=== PATIENT | female | born 1970 | race Caucasian/White ===

== ENCOUNTER 2017-10-14 11:23 | Observation (INO) | payer MEDICAID, SELFPAY ==
[2017-10-14] VITALS (9 sets, daily range): BP systolic 123–172; BP diastolic 46–104; PULSE 60–70; RESP 12–22; TEMP 36.3–37; O2SAT 98–100; BMI 33.8
--- NOTE | 2017-10-14 11:52 | HMH.EDCP ---
ED Disposition Clinical Impression: Chest pain Qualifiers: Chest pain type: other chest pain Qualified Code(s): R07.89 - Other chest pain; R07.8 - Other chest pain Disposition: Admitted As Inpatient Condition on Discharge: Good - Critical Care Critical Care Time: No Attestation: On , the high probability of a clinically significant, sudden or life threatening deterioration of the following system(s) required my full and direct attention, intervention and personal management. The time I documented below is in addition to time spent performing reported procedures but includes the following listed in this critical care notation. Medical Decision Making - Medical Records Medical records reviewed: Yes: I reviewed the patient's medical records. Vital Signs: 10/14/17 11:26 Temperature 98.1 F Temperature Source Oral Pulse Rate [Left Brachial] 61 Respiratory Rate 12 Blood Pressure [Right Arm] 165/93 Blood Pressure Mean [Right Arm] 117 Blood Pressure Source [Right Arm] Automatic Cuff Blood Pressure Position [Right Arm] Supine 02 Sat by Pulse Oximetry 100 Oxygen Delivery Method Room Air - Lab Data Lab results reviewed: Yes: I reviewed the patient's lab results. Result diagrams: 10/14/17 11:35 10/14/17 11:35 Orders (Tests/Meds): ED MEDICATIONS Generic Name Dose Route Start Last Admin Trade Name Freq PRN Reason Stop Dose Admin Nitroglycerin/Dextrose 250 mls @ 3 mls/hr 10/14/17 13:00 Nitroglycerin 50mg/250ml D5w IV 11/13/17 12:59 .Q24H JERZY Protocol 10 MCG/MIN Sodium Chloride 10 ml 10/14/17 12:33 Saline Flush 10ml Syringe IV 11/13/17 12:32 NEEDED PRN Maintain IV Site Discontinued Medications Generic Name Dose Route Start Last Admin Trade Name Freq PRN Reason Stop Dose Admin Morphine Sulfate 2 mg 10/14/17 12:41 10/14/17 13:12 Morphine 2mg/Ml Syringe IV 10/14/17 12:42 2 mg ONCE ONE Administration ORDERS Category Date Time Status Chest XR 2 view (NOT portable) [XR chest 2V] Stat Exams 10/14/17 11:58 Taken - ECG Data Tracing #1 ECG normal with no acute: arrhythmias, ischemia, conduction abnormalities, chamber hypertrophy (normal EKG) - Brain Inquiry Pt receiving controlled substance: No Brain was queried for this patient: No Medical Decision Making Narrative: patient did well per ED pain down fron 810to [address] Zhou and Dr Burrell Chest Pain HPI - General Chief Complaint: Chest Pain Stated Complaint: CHEST PAIN Time Seen by Provider: 10/14/17 11:52 Mode of Arrival: Ambulatory Source of Information: Patient Limitations: No Limitations Description of Symptoms (Recalled from ER Triage Doc. by RN): PT C/O LEFT CHEST PAIN GOING THROUGH HER BACK RADIATING DOWN HER LEFT ARM. PAIN IS A 8 AND FEELS LIKE A KNIFE STABBING HER. PT HAS HX OF [place]'S. - History of Present Illness MD complaint: chest pain Onset (ago): hour(s) (1) Time: 10:00 (also had same yesterday) Duration: constant Activity at onset: during rest Pain location: left chest Severity scale (1-10): 8 Quality: sharp, ripping, similar to prior [place] Exacerbating factors: nothing Risk Factors for CAD: Hypertension Treatments prior to or on arrival for Cardiac Chest Pain: nitroglycerin - Related Data Prior Cardiac Testing/Procedures: Stenting On Oral Contraceptives: No Allergies Allergy/AdvReac Type Severity Reaction Status Date / Time amoxicillin Allergy Mild Verified 10/14/17 11:36 ketorolac [From Toradol] Allergy Mild Verified 10/14/17 11:36 prasugrel [From Effient] Allergy Mild Verified 10/14/17 11:36 [facility] History Medical History: Reports:: Diabetes Mellitus Type 2 Denies:: Cancer, Diabetes Mellitus Type 1, MRSA Other Surgeries: No: Pacemaker Amputation: No Fractures: No - *Social History Alcohol Intake: never - Psychiatric History Expresses thoughts of harming self/others: None Suicide Plan Description: No Plan ROS Ob
--- NOTE | 2017-10-14 11:55 | ED_ITS ---
ED Disposition Clinical Impression: Chest pain Qualifiers: Chest pain type: other chest pain Qualified Code(s): R07.89 - Other chest pain ; R07.8 - Other chest pain Disposition: Admitted As Inpatient Condition on Discharge: Good - Critical Care Critical Care Time: No Attestation: On , the high probability of a clinically significant, sudden or life threatening deterioration of the following system(s) required my full and direct attention, intervention and personal management. The time I documented below is in addition to time spent performing reported procedures but includes the following listed in this critical care notation. Medical Decision Making - Medical Records Medical records reviewed: Yes: I reviewed the patient's medical records. Vital Signs: 10/14/17 11:26 Temperature 98.1 F Temperature Source Oral Pulse Rate [Left Brachial] 61 Respiratory Rate 12 Blood Pressure [Right Arm] 165/93 Blood Pressure Mean [Right Arm] 117 Blood Pressure Source [Right Arm] Automatic Cuff Blood Pressure Position [Right Arm] Supine 02 Sat by Pulse Oximetry 100 Oxygen Delivery Method Room Air - Lab Data Lab results reviewed: Yes: I reviewed the patient's lab results. Result diagrams: 10/14/17 11:35 10/14/17 11:35 Orders (Tests/Meds): ED MEDICATIONS Generic Name Dose Route Start Last Admin Trade Name Freq PRN Reason Stop Dose Admin Nitroglycerin/Dextrose 250 mls @ 3 mls/hr 10/14/17 13:00 Nitroglycerin 50mg/250ml D5w IV 11/13/17 12:59 .Q24H JERZY Protocol 10 MCG/MIN Sodium Chloride 10 ml 10/14/17 12:33 Saline Flush 10ml Syringe IV 11/13/17 12:32 NEEDED PRN Maintain IV Site Discontinued Medications Generic Name Dose Route Start Last Admin Trade Name Freq PRN Reason Stop Dose Admin Morphine Sulfate 2 mg 10/14/17 12:41 10/14/17 13:12 Morphine 2mg/Ml Syringe IV 10/14/17 12:42 2 mg ONCE ONE Administration ORDERS Category Date Time Status Chest XR 2 view (NOT portable) [XR chest 2V] Stat Exams 10/14/17 11:58 Taken - ECG Data Tracing #1 ECG normal with no acute: arrhythmias, ischemia, conduction abnormalities, chamber hypertrophy (normal EKG) - Brain Inquiry Pt receiving controlled substance: No Brain was queried for this patient: No Medical Decision Making Narrative: patient did well per ED pain down fron 05/23to 03/[address] Zhou and Dr Burrell Chest Pain HPI - General Chief Complaint: Chest Pain Stated Complaint: CHEST PAIN Time Seen by Provider: 10/14/17 11:52 Mode of Arrival: Ambulatory Source of Information: Patient Limitations: No Limitations Description of Symptoms (Recalled from ER Triage Doc. by RN): PT C/O LEFT CHEST PAIN GOING THROUGH HER BACK RADIATING DOWN HER LEFT ARM. PAIN IS A 8 AND FEELS LIKE A KNIFE STABBING HER. PT HAS HX OF [place]'S. - History of Present Illness MD complaint: chest pain Onset (ago): hour(s) (1) Time: 10:00 (also had same yesterday) Duration: constant Activity at onset: during rest Pain location: left chest Severity scale (1-10): 8 Quality: sharp, ripping, similar to prior [place] Exacerbating factors: nothing Risk Factors for CAD: Hypertension Treatments prior to or on arriv
--- NOTE | 2017-10-14 11:58 | XR_ITS ---
XR chest 2V Ordering Physician: Ehsan Fatima MD Patient Age: 47 years: Female HISTORY: ITS.REASON: CHETS PAIN TECHNIQUE: PA and lateral chest COMPARISON :No previous FINDINGS Lungs appear mildly hyperexpanded but no acute cardiopulmonary findings. Lungs are clear with no focal pneumonia. No effusion. No pneumothorax. Chest wall and T-spine unremarkable. The heart is normal in size. I believe there are Previous coronary artery stents in place versus coronary artery calcification. Suspect stent likely involving the right coronary and a left diagonal possibly the LAD. . The heart remains normal size. Alise and mediastinal structures unremarkable. IMPRESSION: Nothing definitely acute. . Lungs mildly hyperexpanded but clear Heart normal in size. Suspect faintly visualized coronary artery stents in place Normal Pulmonary vascularity.
[2017-10-14 12:11] LABS: Basophils # 0.1 K/mm3 (0-0.2); Basophils % 0.9 % (0.1-2.0); Eosinophils # 0.1 K/mm3 (0.0-0.4); Eosinophils % 1.6 % (0.1-12.0); Hematocrit 47.4 % (37.0-47.0); Lymphocytes # 1.7 K/mm3 (0.7-4.5); Lymphocytes % 32.5 K/mm3 (10-50); Mean Corpuscular HGB Conc 31.6 g/dL (31.8-35.4); Mean Corpuscular Hemoglobin 27.5 pg (27.0-31.2); Mean Corpuscular Volume 87.1 fl (81-99); Mean Platelet Volume 8.3 fl (7.4-10.4); Monocytes # 0.4 K/mm3 (0.1-1.0); Monocytes % 6.8 % (1.7-9.3); Neutrophils % 58.2 % (37.0-80.0); Platelet Count 271 K/mm3 (142-424); Red Blood Count 5.44 M/mm3 (4.20-5.40); Red Cell Distribution Width 14.1 % (11.5-17.5); White Blood Count 5.2 K/mm3 (4.8-10.8)
[2017-10-14 12:31] LABS: Alanine Aminotransferase 22 U/L (12-78); Alkaline Phosphatase 72 U/L (46-116); Anion Gap 12.7 mEq/L (5-15); Aspartate Amino Transferase 17 U/L (15-37); Bilirubin,Total 0.5 mg/dL (0.2-1.0); Blood Urea Nitrogen 11 mg/dL (7-18); Calcium 8.9 mg/dL (8.5-10.1); Carbon Dioxide 29 mmol/L (21.0-32.0); Chloride 103 mmol/L (98-107); Creatine Kinase 67 U/L (26-140); Creatinine Clearance Estimated 97 mg/ml (0-300); Creatinine,Serum 0.93 mg/dL (0.55-1.02); Estimated Glomerular Filt Rate > 60 ml/min (>60); GFR (African American) > 60 ML/MIN (>60); Globulin 4.1 gm/dl (1.3-3.2); Glucose 90 mg/dL (74-106); Potassium 3.7 mmoL/L (3.5-5.1); Sodium 141 mmol/L (136-145); Total Protein,Serum 8.1 gm/dL (6.4-8.2); Troponin I < 0.02 ng/ml (0.00-0.06)
[2017-10-14 12:34] LABS: CKMB Relative Index 0.7 U/L (0-4.0); Creatine Kinase MB < 0.5 mg/ml (0.0-3.6)
[2017-10-14 18:20] LABS: Eosinophils # 0.1 K/mm3 (0.0-0.4); Eosinophils % 1.7 % (0.1-12.0); Hematocrit 39.6 % (37.0-47.0); Lymphocytes # 1.9 K/mm3 (0.7-4.5); Lymphocytes % 41.9 K/mm3 (10-50); Mean Corpuscular HGB Conc 31.3 g/dL (31.8-35.4); Mean Corpuscular Volume 86.2 fl (81-99); Mean Platelet Volume 7.8 fl (7.4-10.4); Monocytes # 0.3 K/mm3 (0.1-1.0); Monocytes % 6.6 % (1.7-9.3); Neutrophils # 2.2 K/mm3 (1.8-7.8); Neutrophils % 48.9 % (37.0-80.0); Platelet Count 243 K/mm3 (142-424); Red Blood Count 4.59 M/mm3 (4.20-5.40); Red Cell Distribution Width 14.2 % (11.5-17.5); White Blood Count 4.5 K/mm3 (4.8-10.8)
[2017-10-14 18:21] LABS: Anion Gap 11.5 mEq/L (5-15); Blood Urea Nitrogen 12 mg/dL (7-18); Carbon Dioxide 29 mmol/L (21.0-32.0); Chloride 103 mmol/L (98-107); Creatinine Clearance Estimated 100 mg/ml (0-300); Estimated Glomerular Filt Rate > 60 ml/min (>60); GFR (African American) > 60 ML/MIN (>60); Glucose 90 mg/dL (74-106); Potassium 3.5 mmoL/L (3.5-5.1); Sodium 140 mmol/L (136-145)
--- NOTE | 2017-10-14 18:30 | HMH.HP ---
*Admission Date: 10/14/17 *Chief complaint: Chest pain *History of present illness: This 47-year-old white female has a long-standing history of coronary artery disease. She is a regular patient of Dr. Ender Zhou'vishnu and sees him on a regular basis. She presented with chest pain which she describes as a hot knife stabbing pressure in the chest. She first presented to the [place] emergency room but came to [place] after the ER physician in [place] would not contact Dr. Otoole according to her statement. She has had multiple cardiac catheterizations with a total of 13 stents placed she states. Her first catheterization was in 2008 her last catheterization was this past year 2017. She states that she has had 3 myocardial infarctions. There is a significant family history of cardiac disease. A cousin at age 47 and her father has coronary artery disease. One sister has heart disease. The patient's cardiac medications include Plavix aspirin Ranexa and Coreg and Norvasc. She is aching Synthroid for hypothyroidism.. [facility] History Medical History: Reports:: Coronary Artery Disease, Myocardial Infarction Denies:: Cancer, Diabetes Mellitus Type 1, Diabetes Mellitus Type 2, MRSA Comment: Crohn's disease diagnosed 2010. Ulcer disease treated with Protonix 40 mg twice daily Laterality Cases: Bilateral: Carpal Tunnel Release, Lumpectomy, Other Other Surgeries: Yes: Other (CAURDERIZE ULCERS, UTERINE ABLASION, ANKLE SX AND BILAT KNEE SCOPES). No: Pacemaker Amputation: No Fractures: No Comment: Cystectomy thousand 4 ankle surgery 2013. 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 Surgery ?2 in 2002. - *Social History Educational Level: Completed College Smoking Status: Never smoker Alcohol Intake: never Occupational Status: employed Housing: apartment Household Members: none - Psychiatric History Expresses thoughts of harming self/others: None Suicide Plan Description: No Plan, Clear *Family Hx:: Coronary Artery Disease, Heart Attack, Hyperlipidemia, Hypertension, Thyroid Disorder Review of Systems - Review of Systems Review of systems:: pertinent systems reviewed and negative unless documented below - Constitutional Denies anorexia, Denies body ache(s), Denies chills, Denies weakness - Eyes Denies blurry vision, Denies change in vision - ENT Denies dizziness, Denies difficulty swallowing, Denies dizziness - *Cardiovascular Reports chest pain, Reports chest pain at rest, Reports chest pain with activity, Reports radiating jaw, neck or arm pain, Denies fainting - *Respiratory Denies cough, Denies shortness of breath - *Gastrointestinal Denies abdominal pain, Denies change in bowel habits - *Genitourinary Denies painful urination - *Musculoskeletal Denies back pain, Denies joint swelling, Denies muscle weakness - Integumentary/Breasts Denies bleeding lesions, Denies change in hair - *Neurologic Denies abnormal walking, Denies behavioral changes - Psychiatric Denies depression - Hematologic/Lymphatic Denies easy bleeding - Allergic/Immunologic Denies tongue swelling Meds Home Medications Medication Instructions Recorded Confirmed Type Amlodipine Besylate [Norvasc 2.5mg 2.5 mg PO DAILY 10/14/17 10/14/17 History tablet] Aspirin [Aspir 81] 162 mg PO DAILY 10/14/17 10/14/17 History Atorvastatin Calcium [Lipitor 40mg 40 mg PO DAILY 10/14/17 10/14/17 History Tablet] Carvedilol [Coreg 6.25mg 6.25 mg PO DAILY 10/14/17 10/14/17 History Tablet] Clopidogrel Bisulfate [Plavix 75mg 75 mg PO DAILY 10/14/17 10/14/17 History Tab] Fluoxetine HCl [Prozac] 80 mg PO DAILY 10/14/17 10/14/17 History Levothyroxine Sodium [Synthroid 50 mcg PO DAILY 10/14/17 10/14/17 History 50mcg (0.05mg) tab] Loratadine [Claritin 10mg Tablet] 10 mg PO DAILY 10/14/17 10/14/17 History Pantoprazole Sodium [Protonix 40mg 40 mg PO BID 10/14/17 10/14/17 History tablet] Rano
[2017-10-14 18:32] LABS: Troponin I < 0.02 ng/ml (0.00-0.06)
--- NOTE | 2017-10-14 18:34 | P.HP_ITS ---
*Admission Date: 10/14/17 *Chief complaint: Chest pain *History of present illness: This 47-year-old white female has a long-standing history of coronary artery disease. She is a regular patient of Dr. Ender Zhou'vishnu and sees him on a regular basis. She presented with chest pain which she describes as a hot knife stabbing pressure in the chest. She first presented to the [place] emergency room but came to [place] after the ER physician in [place] would not contact Dr. Otoole according to her statement. She has had multiple cardiac catheterizations with a total of 13 stents placed she states. Her first catheterization was in 2008 her last catheterization was this past year 2017. She states that she has had 3 myocardial infarctions. There is a significant family history of cardiac disease. A cousin at age 47 and her father has coronary artery disease. One sister has heart disease. The patient's cardiac medications include Plavix aspirin Ranexa and Coreg and Norvasc. She is aching Synthroid for hypothyroidism.. [facility] History Medical History: Reports:: Coronary Artery Disease, Myocardial Infarction Denies:: Cancer, Diabetes Mellitus Type 1, Diabetes Mellitus Type 2, MRSA Comment: Crohn's disease diagnosed 2010. Ulcer disease treated with Protonix 40 mg twice daily Laterality Cases: Bilateral: Carpal Tunnel Release, Lumpectomy, Other Other Surgeries: Yes: Other (CAURDERIZE ULCERS, UTERINE ABLASION, ANKLE SX AND BILAT KNEE SCOPES). No: Pacemaker Amputation: No Fractures: No Comment: Cystectomy thousand 4 ankle surgery 2013. 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 Surgery ?2 in 2002. - *Social History Educational Level: Completed College Smoking Status: Never smoker Alcohol Intake: never Occupational Status: employed Housing: apartment Household Members: none - Psychiatric History Expresses thoughts of harming self/others: None Suicide Plan Description: No Plan, Clear *Family Hx:: Coronary Artery Disease, Heart Attack, Hyperlipidemia, Hypertension , Thyroid Disorder Review of Systems - Review of Systems Review of systems:: pertinent systems reviewed and negative unless documented below - Constitutional Denies anorexia, Denies body ache(s), Denies chills, Denies weakness - Eyes Denies blurry vision, Denies change in vision - ENT Denies dizziness, Denies difficulty swallowing, Denies dizziness - *Cardiovascular Reports chest pain, Reports chest pain at rest, Reports chest pain with activity , Reports radiating jaw, neck or arm pain, Denies fainting - *Respiratory Denies cough, Denies shortness of breath - *Gastrointestinal Denies abdominal pain, Denies change in bowel habits - *Genitourinary Denies painful urination - *Musculoskeletal Denies back pain, Denies joint swelling, Denies muscle weakness - Integumentary/Breasts Denies bleeding lesions, Denies change in hair - *Neurologic Denies abnormal walking, Denies behavioral changes - Psychiatric Denies depression - Hematologic/Lymphatic Denies easy bleeding - Allergic/Immunologic Denies tongue swelling Meds Home Medications Medication Instructions Recorded Confirmed Type Amlodipine Besylate [Norvasc 2.5mg 2.5 mg PO DAILY 10/14/17 10/14/17 History tablet] Aspirin [Aspir 81] 162 mg PO DAILY 10/14/17 10/14/17 History Atorvastatin Calcium [Lipitor 40mg 40 mg PO DAILY 10/14/17 10/14/17 History Tablet] Carvedilol [Coreg 6.25mg 6.25 mg PO DAILY 10/14/17 10/14/17 History
[2017-10-14 18:51] LABS: Hemoglobin 12.7 g/dL (12.2-16.2)
[2017-10-14 21:40] LABS: Troponin I < 0.02 ng/ml (0.00-0.06)
[2017-10-15] VITALS (11 sets, daily range): BP systolic 118–164; BP diastolic 79–99; PULSE 56–71; RESP 16–20; TEMP 36.3–37.1; O2SAT 96–100
[2017-10-15 00:13] LABS: Troponin I < 0.02 ng/ml (0.00-0.06)
--- NOTE | 2017-10-15 02:16 | PC.NURSE ---
PT IS A&OX3. SHE IS INDEPENDENT WITH ADLS. LUNG SOUNDS DIMNISHED. NORMAL BOWEL SOUNDS. D/C NITRO PER MD. PT HAS RECEIVED PRN MORPHINE FOR PAIN. HER PULSE DROPPED TO 52-53 DURING THE NIGHT. INFORMED PT TO WAIT ABOUT 30 MINUTES TO SEE IF HER PULSE WOULD RISE TO CLOSE TO 60. PT STATED HER PULSE IS ALWAYS LOW AT NIGHT. WENT TO DISCUSS PAIN MED WITH PT AND SHE WAS WALKING IN HER ROOM. PT WAS GIVEN PRN PAIN MEDICATION. CONTINUING TO MONITOR VS. VARYING BETWEEN BRADYCARDIA AND NSR ON TELEMETRY. SHE IS NPO FOR [facility] CONSULT.
--- NOTE | 2017-10-15 04:24 | PC.NURSE ---
DR MIRANDA CONTACTED ON 10/14/17 @ 5881 R/T TO PT REPORTING PAIN AND REQUESTING THAT NITRO DRIP BEING DISCONTINUED R/T IT NOT HELPING. GAVE N/O TO D/C NITRO GTT AND GIVE MORPHINE 5MG Q 1 HOUR IV PRN MODERATE TO SEVERE PAIN. READ BACK AND VERIFIED.
--- NOTE | 2017-10-15 04:29 | PC.NURSE ---
PT COMPLAINTING OF NAUSEA SPOKE WITH ORDERS RECEIVED FOR ZOFRAN 4MG IVP EVERY 4 HOURS PRN FOR NAUSEA.ORDERS REPEATED AND VERIFIED
--- NOTE | 2017-10-15 08:24 | HMH.PHAVTE ---
[facility] Pharmacy VTE Monitoring - Patient Demographics Admission date: 10/15/17 Report Date: 10/15/17 Time: 08:25 Allergies/Adverse Reactions: Iodinated Contrast Media - Oral and Allergy (Severe, Verified 10/14/17 18:39) Anaphylaxis amoxicillin Allergy (Mild, Verified 10/14/17 18:39) Rash ketorolac [From Toradol] Allergy (Mild, Verified 10/14/17 18:39) Rash prasugrel [From Effient] Allergy (Mild, Verified 10/14/17 18:39) Rash Height: 1.55 m Weight: 80.824 kg Patient Problems: Current Active Problems Chest pain (Acute) Coronary artery disease (Acute) History of coronary artery stent placement (Acute) Hypothyroidism (acquired) (Acute) Hypertension (Acute) Crohns disease (Acute) Hyperlipidemia (Acute) - VTE Risk Labs: VTE Related Lab Results Hgb 12.7 g/dL (12.2-16.2) D 10/14/17 17:40 Hct 39.6 % (37.0-47.0) 10/14/17 17:40 Plt Count 243 K/mm3 (142-424) 10/14/17 17:40 BUN 12 mg/dL (7-18) 10/14/17 17:40 Creatinine 0.90 mg/dL (0.55-1.02) 10/14/17 17:40 Estimated Creat Clear 100 mg/ml (0-300) 10/14/17 17:40 - Prophylaxis Types of VTE Prophylaxis: TEDS Knee High, Other Location of Applied Device: Not Applicable - VTE Diagnosis Confirmed Comment: KAIA GURROLA ORDERED
--- NOTE | 2017-10-15 09:21 | HMH.CARDCON2 ---
History of Present Illness Consult date: 10/15/17 Requesting physician: Koby Burrell Consult reason: chest pain Chief complaint: chest pain History of present illness: 47 yo WF with history of DM (off meds since 75 lb wt loss), CAD with history of coronary stenting, Crohn's disease and ulcers presented to ER for evaluation of chest pain. Symptoms are left sided with radiation to back and into left arm and have been present since yesterday morning with varying degrees of intensity. Associated nausea without diarrhea or vomiting noted. Initially seen in the ER at [place] and with normal troponin, she was to be discharged home. Pt was insisting to see Dr. Zhou but the ER physician reportedly did not feel that was warranted and the patient decided to leave to come to [facility] so that she could be seen by Dr Zhou. Pt has been receiving Morphine since admission here with some improvement in symptoms but not resolution. She continues to require Zofran for nausea. Troponins have returned normal X 4 with no acute EKG changes. Cardiology consulted for further evaluation Review of Systems - *Cardiovascular Reports chest pain, Reports chest pain with activity - *Gastrointestinal Reports nausea - *Neurologic Denies abnormal walking, Denies behavioral changes, Denies dizziness, Denies fainting, Denies dizziness, Denies weakness [facility] History Medical History: Reports:: Coronary Artery Disease, Myocardial Infarction Denies:: Cancer, Diabetes Mellitus Type 1, Diabetes Mellitus Type 2, MRSA Laterality Cases: Bilateral: Carpal Tunnel Release, Lumpectomy, Other Other Surgeries: Yes: Other (CAURDERIZE ULCERS, UTERINE ABLASION, ANKLE SX AND BILAT KNEE SCOPES). No: Pacemaker Amputation: No Fractures: No - *Social History Educational Level: Completed College Smoking Status: Never smoker Tobacco Type: cigarettes Alcohol Intake: never Occupational Status: employed Housing: apartment Household Members: none - Psychiatric History Expresses thoughts of harming self/others: None Suicide Plan Description: No Plan, Clear *Family Hx:: Coronary Artery Disease, Heart Attack, Hyperlipidemia, Hypertension, Thyroid Disorder Meds Home Medications Medication Instructions Recorded Confirmed Type Amlodipine Besylate [Norvasc 2.5mg 2.5 mg PO DAILY 10/14/17 10/14/17 History tablet] Aspirin [Aspir 81] 162 mg PO DAILY 10/14/17 10/14/17 History Atorvastatin Calcium [Lipitor 40mg 40 mg PO DAILY 10/14/17 10/14/17 History Tablet] Carvedilol [Coreg 6.25mg 6.25 mg PO DAILY 10/14/17 10/14/17 History Tablet] Clopidogrel Bisulfate [Plavix 75mg 75 mg PO DAILY 10/14/17 10/14/17 History Tab] Fluoxetine HCl [Prozac] 80 mg PO DAILY 10/14/17 10/14/17 History Levothyroxine Sodium [Synthroid 50 mcg PO DAILY 10/14/17 10/14/17 History 50mcg (0.05mg) tab] Loratadine [Claritin 10mg Tablet] 10 mg PO DAILY 10/14/17 10/14/17 History Pantoprazole Sodium [Protonix 40mg 40 mg PO BID 10/14/17 10/14/17 History tablet] Ranolazine [Ranexa] 1,000 mg PO BID 10/14/17 10/14/17 History Allergies Allergy/AdvReac Type Severity Reaction Status Date / Time Iodinated Contrast Media - Allergy Severe Anaphylaxis Verified 10/14/17 18:39 Oral and amoxicillin Allergy Mild Rash Verified 10/14/17 18:39 ketorolac [From Toradol] Allergy Mild Rash Verified 10/14/17 18:39 prasugrel [From Effient] Allergy Mild Rash Verified 10/14/17 18:39 Exam Vital signs and Labs for Last 24 Hours: Temp Pulse Resp BP Pulse Ox 98.1 F 64 20 132/98 99 10/15/17 06:20 10/15/17 06:20 10/15/17 06:20 10/15/17 06:20 10/15/17 02:14 Short CBC 10/14/17 Range/Units 17:40 WBC 4.5 L (4.8-10.8) K/mm3 Hgb 12.7 D (12.2-16.2) g/dL Hct 39.6 (37.0-47.0) % Plt Count 243 (142-424) K/mm3 BMP 10/14/17 17:40 Sodium 140 Potassium 3.5 Chloride 103 Carbon Dioxide 29 BUN 12 Creatinine 0.90 Glucose 90 Cardiac Enzymes
--- NOTE | 2017-10-15 09:32 | P.CONS_ITS ---
History of Present Illness Consult date: 10/15/17 Requesting physician: Koby Burrell Consult reason: chest pain Chief complaint: chest pain History of present illness: 47 yo WF with history of DM (off meds since 75 lb wt loss), CAD with history of coronary stenting, Crohn's disease and ulcers presented to ER for evaluation of chest pain. Symptoms are left sided with radiation to back and into left arm and have been present since yesterday morning with varying degrees of intensity. Associated nausea without diarrhea or vomiting noted. Initially seen in the ER at [place] and with normal troponin, she was to be discharged home. Pt was insisting to see Dr. Zhou but the ER physician reportedly did not feel that was warranted and the patient decided to leave to come to [facility] so that she could be seen by Dr Zhou. Pt has been receiving Morphine since admission here with some improvement in symptoms but not resolution. She continues to require Zofran for nausea. Troponins have returned normal X 4 with no acute EKG changes. Cardiology consulted for further evaluation Review of Systems - *Cardiovascular Reports chest pain, Reports chest pain with activity - *Gastrointestinal Reports nausea - *Neurologic Denies abnormal walking, Denies behavioral changes, Denies dizziness, Denies fainting, Denies dizziness, Denies weakness [facility] History Medical History: Reports:: Coronary Artery Disease, Myocardial Infarction Denies:: Cancer, Diabetes Mellitus Type 1, Diabetes Mellitus Type 2, MRSA Laterality Cases: Bilateral: Carpal Tunnel Release, Lumpectomy, Other Other Surgeries: Yes: Other (CAURDERIZE ULCERS, UTERINE ABLASION, ANKLE SX AND BILAT KNEE SCOPES). No: Pacemaker Amputation: No Fractures: No - *Social History Educational Level: Completed College Smoking Status: Never smoker Tobacco Type: cigarettes Alcohol Intake: never Occupational Status: employed Housing: apartment Household Members: none - Psychiatric History Expresses thoughts of harming self/others: None Suicide Plan Description: No Plan, Clear *Family Hx:: Coronary Artery Disease, Heart Attack, Hyperlipidemia, Hypertension , Thyroid Disorder Meds Home Medications Medication Instructions Recorded Confirmed Type Amlodipine Besylate [Norvasc 2.5mg 2.5 mg PO DAILY 10/14/17 10/14/17 History tablet] Aspirin [Aspir 81] 162 mg PO DAILY 10/14/17 10/14/17 History Atorvastatin Calcium [Lipitor 40mg 40 mg PO DAILY 10/14/17 10/14/17 History Tablet] Carvedilol [Coreg 6.25mg 6.25 mg PO DAILY 10/14/17 10/14/17 History Tablet] Clopidogrel Bisulfate [Plavix 75mg 75 mg PO DAILY 10/14/17 10/14/17 History Tab] Fluoxetine HCl [Prozac] 80 mg PO DAILY 10/14/17 10/14/17 History Levothyroxine Sodium [Synthroid 50 mcg PO DAILY 10/14/17 10/14/17 History 50mcg (0.05mg) tab] Loratadine [Claritin 10mg Tablet] 10 mg PO DAILY 10/14/17 10/14/17 History Pantoprazole Sodium [Protonix 40mg 40 mg PO BID 10/14/17 10/14/17 History tablet] Ranolazine [Ranexa] 1,000 mg PO BID 10/14/17 10/14/17 History Allergies Allergy/AdvReac Type Severity Reaction Status Date / Time Iodinated Contrast Media - Allergy Severe Anaphylaxis Verified 10/14/17 18:39 Oral and amoxicillin Allergy Mild Rash Verified 10/14/17 18:39 ketorolac [From Toradol] Allergy Mild Rash Verified 10/14/17 18:39 prasugrel [From Effient] Allergy Mild Rash Verified 10/14/17 18:39
--- NOTE | 2017-10-15 09:32 | P.PN_ITS ---
Internal Medicine - PN: Subj *Date: 10/15/17 *Time: 09:30 Interval history: She remained stable through the night. Is being evaluated by cardiology this morning. Did have pain through the night. 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 Exam Vital signs and Labs for Last 24 Hours: Temp Pulse Resp BP Pulse Ox 98.1 F 64 20 132/98 99 10/15/17 06:20 10/15/17 06:20 10/15/17 06:20 10/15/17 06:20 10/15/17 02:14 Short CBC 10/14/17 Range/Units 17:40 WBC 4.5 L (4.8-10.8) K/mm3 Hgb 12.7 D (12.2-16.2) g/dL Hct 39.6 (37.0-47.0) % Plt Count 243 (142-424) K/mm3 BMP 10/14/17 17:40 Sodium 140 Potassium 3.5 Chloride 103 Carbon Dioxide 29 BUN 12 Creatinine 0.90 Glucose 90 Cardiac Enzymes 10/14/17 10/14/17 10/14/17 Range/Units 17:40 20:14 23:35 Troponin I < 0.02 < 0.02 < 0.02 (0.00-0.06) ng/ml I & O for Last 24 hours: Intake & Output 10/12/17 10/13/17 10/14/17 10/15/17 11:59 11:59 11:59 11:59 Intake Total Balance - *Routine Respiratory Exam Absent: respiratory distress - *Routine Cardiovascular Exam Present: RRR Assessment and Plan (1) Chest pain Current visit: Yes Status: Acute Qualifiers: Qualified Code(s): R07.89 - Other chest pain; R07.8 - Other chest pain Category: Medical Code(s): R07.9 - Chest pain, unspecified Per Cardiology (2) Coronary artery disease Current visit: Yes Status: Acute Category: Medical Code(s): I25.10 - Atherosclerotic heart disease of [place] coronary artery without angina pectoris (3) History of coronary artery stent placement Current visit: Yes Status: Acute Category: Surgical Code(s): Z95.5 - Presence of coronary angioplasty implant and graft (4) Hypothyroidism (acquired) Current visit: Yes Status: Acute Category: Medical Code(s): E03.9 - Hypothyroidism, unspecified (5) Hypertension Current visit: Yes Status: Acute Category: Medical Code(s): I10 - Essential (primary) hypertension (6) Crohns disease Current visit: Yes Status: Acute Category: Medical Code(s): K50.90 - Crohn 's disease, unspecified, without complications (7) Hyperlipidemia Current visit: Yes Status: Acute Category: Medical Code(s): E78.5 - Hyperlipidemia, unspecified
--- NOTE | 2017-10-15 09:39 | CA_ITS ---
PROCEDURE: 2-D M-mode and color Doppler study INDICATIONS FOR THE TEST: Chest pain + COPD Heart Murmur Tobacco Smoking Palpitations Fatigue Syncope Edema Hypertension+Diabetes Mellitus+ Rheumatic Fever SOB ROJAS Obesity+Hyperlipidemia+ Family History HD Additional History 13 stents, mi PATIENT INFORMATION HEIGHT:61 WEIGHT:178 GENDER: Female B/P:132/98 2-D/M-MODE INTERPRETATION: 2-D MEASUREMENTS OBSERVED VALUES IN CMS Right Ventricular Dimension (RVDd) 2.2 Interventricular Septum (Thickness)(IVsd) 1.1 Left Ventricular Internal Dimensions(LVIDd) 5.3 Left Ventricular Posterior Wall (Thickness)(LVPWd) 1.0 Aortic Root 3.3 Aortic Cusp Separation 2.0 Left Atrial Dimensions (LAD) 3.9 2D 1. Left atrium is mildly enlarged, left ventricle is normal size, there is mild concentric left ventricular hypertrophy, visually estimated ejection fraction 55% with no obvious regional wall motion abnormality. 2. The right atrium and right ventricle are normal size and contractility. 3. The aortic valve is minimally thickened and fibrosed. 4. The mitral and tricuspid valve are structurally normal. 5. The pulmonic valve is poorly visualized. 6. No significant pericardial effusion noted. DOPPLER INTERROGATION: Doppler interrogation of the aortic, mitral and tricuspid valvular presence of mild mitral and tricuspid regurgitation, tricuspid regurgitant jet velocity is insufficient for calculation of the right ventricular systolic pressure, grade 1 diastolic dysfunction seen without tissue Doppler evidence of raised left atrial pressure. CONCLUSION: 1. Mildly enlarged left atrium, normal left ventricular size, mild concentric left ventricular hypertrophy, visually estimated ejection fraction 55% with no obvious regional wall motion abnormality. Grade 1 diastolic dysfunction seen without tissue Doppler evidence of raised left atrial pressure. 2. Mild mitral and tricuspid regurgitation. 3. No significant pericardial effusion noted.
--- NOTE | 2017-10-15 10:41 | PC.NURSE ---
OF 0900 PER BERNA ANNE IT WAS OKAYED FOR PATIENT TO COME OUT OF STEPDOWN AND BE MADE ACUTE
--- NOTE | 2017-10-15 19:03 | PC.NURSE ---
PATIENT HAS COMPLAINED OF PAIN ENTIRE SHIFT. MD WAS MADE AWARE OF IT MULTIPLE TIMES. HE WAS CALLED AND TOLD OF MORPHINE WEARING OFF AND REQUESTS FOR PAIN PILL. DR. MIRANDA STATED TO CHANGE CARVEDILOL DOSE TO 25MG BID AND TO ORDER 10MG PERCOCET EVERY 8 HOURS. MONTIOR HAS REMAINED NORMAL SINUS. VSS WILL CONTINUE TO MONITOR.
[2017-10-16] VITALS: PULSE 60
[2017-10-16 00:27] VITALS: BP 138/83; PULSE 61; RESP 18; TEMP 36.8; O2SAT 99
--- NOTE | 2017-10-16 03:50 | PC.NURSE ---
PT STABLE. REQUESTS PAIN MEDICATION SEVERAL TIMES THROUGHOUT THE SHIFT. TECH NOTIFIES NURSE. WHEN I COME IN ROOM, PT NOTED TO BE ASLEEP AND SNORING WITH FAMILY IN BED WITH HER. AT 0315 PT AWAKE AND COMES TO NURSES STATION TO ASK FOR PAIN MEDICATIONS. PT REMINDED EARLIER IN THE SHIFT THAT PAIN MED WILL BE AVAILABLE AT 0311. PT REPORTS PAIN IS A 7 AND IS IN HER CHEST AND LEFT SHOULDER AND NOT SO MUCH IN THE LEFT ARM ANYMORE. PT GIVEN NAUSEA MEDS ONCE THIS SHIFT WELL.
[2017-10-16 04:00] VITALS: PULSE 70
[2017-10-16 04:30] VITALS: BP 138/82; PULSE 75; RESP 18; TEMP 36.7; O2SAT 99
--- NOTE | 2017-10-16 04:58 | PC.NURSE ---
WHILE ASLEEP PT NOTED TO HAVE BRADYCARDIA IN HIGH 40s AND LOW 50s
[2017-10-16 08:00] VITALS: BP 136/73; PULSE 61; RESP 18; TEMP 36.6; O2SAT 96
--- NOTE | 2017-10-16 08:06 | P.PN_ITS ---
Internal Medicine - PN: Subj *Date: 10/16/17 *Time: 08:13 Interval history: Pt states she is feeling a little better today. Still having some CP. States it has improved slightly from yesterday. Anxious to go home today. Exam Vital signs and Labs for Last 24 Hours: Temp Pulse Resp BP Pulse Ox 98.1 F 75 18 138/82 99 10/16/17 04:30 10/16/17 04:30 10/16/17 04:30 10/16/17 04:30 10/16/17 04:30 I & O for Last 24 hours: Intake & Output 10/13/17 10/14/17 10/15/17 10/16/17 11:59 11:59 11:59 11:59 Intake Total Balance no acute distress - *Routine Respiratory Exam Present: CTA bilaterally - *Routine Cardiovascular Exam Present: RRR - *Routine Abdominal Exam Present: soft, normoactive bowel sounds. Absent: tenderness - *Routine Extremities Exam Absent: edema - *Routine Neurological Exam Present: alert, oriented X3 Assessment and Plan (1) Chest pain Current visit: Yes Status: Acute Qualifiers: Chest pain type: other chest pain Qualified Code(s): R07.89 - Other chest pain; R07.8 - Other chest pain Category: Medical Code(s): R07.9 - Chest pain, unspecified (2) Coronary artery disease Current visit: Yes Status: Acute Category: Medical Code(s): I25.10 - Atherosclerotic heart disease of [place] coronary artery without angina pectoris (3) Crohns disease Current visit: Yes Status: Acute Category: Medical Code(s): K50.90 - Crohn 's disease, unspecified, without complications (4) History of coronary artery stent placement Current visit: Yes Status: Acute Category: Surgical Code(s): Z95.5 - Presence of coronary angioplasty implant and graft (5) Hyperlipidemia Current visit: Yes Status: Acute Category: Medical Code(s): E78.5 - Hyperlipidemia, unspecified (6) Hypertension Current visit: Yes Status: Acute Category: Medical Code(s): I10 - Essential (primary) hypertension (7) Hypothyroidism (acquired) Current visit: Yes Status: Acute Category: Medical Code(s): E03.9 - Hypothyroidism, unspecified - Assessment and plan all Dx Assessment and Plan for all problems:: Cardiology note appreciated. They are going to try medical management. Possible discharge home today.
[2017-10-16 08:50] VITALS: O2SAT 98
--- NOTE | 2017-10-16 11:34 | PC.NURSE ---
CALLED RUTH ABOUT PATIENT WANT FOR PAIN MEDS AND HE DENIED. FOLLOWED UP WITH BERNA BARRON AND RUTH ABOUT HOME MEDS AND VERFIED THE WANT TO CHANGE CARVEDILOL TO 25MG AND NORVASC TO 5MG. PRESCRIPTIONS GIVEN TO PATIENT
--- NOTE | 2017-10-16 11:51 | HMH.CARDPN2 ---
Subjective PN (PG) Date: 10/16/17 Time: 09:00 Principal diagnosis: chest pain Interval history: Pt feeling better. Seems much improved over admission. Wants to go home. She will follow up with her PCP and find a GI Physician for treatment of her Crohn's. PN Exam ([facility] Owned) Vital signs: Temp Pulse Resp BP Pulse Ox 97.9 F 61 18 136/73 98 10/16/17 08:00 10/16/17 08:00 10/16/17 08:00 10/16/17 08:00 10/16/17 08:50 - Constitutional no acute distress - Routine Respiratory Exam Present: distant breath sounds. Absent: rales, rhonchi, wheezes - Routine Cardiovascular Exam Present: RRR A/P Progress Note ([facility]ed) (1) Chest pain Status: Acute Current Visit: Yes (2) Coronary artery disease Status: Acute Assessment and plan: No evidence of cardiac issues with normal troponins, unremarkable eKG and echo showing normal LVEF without significant valve abnormalities. Symptoms likely due to Crohn's. Will discharge home on increase norvasc 5 mg BID and Coreg 25 mg BID. Follow up with Dr. Zhou in 2 wks. Current Visit: Yes
--- NOTE | 2017-10-16 11:55 | P.PN_ITS ---
Subjective PN (PG) Date: 10/16/17 Time: 09:00 Principal diagnosis: chest pain Interval history: Pt feeling better. Seems much improved over admission. Wants to go home. She will follow up with her PCP and find a GI Physician for treatment of her Crohn' s. PN Exam ([facility]ed) Vital signs: Temp Pulse Resp BP Pulse Ox 97.9 F 61 18 136/73 98 10/16/17 08:00 10/16/17 08:00 10/16/17 08:00 10/16/17 08:00 10/16/17 08:50 - Constitutional no acute distress - Routine Respiratory Exam Present: distant breath sounds. Absent: rales, rhonchi, wheezes - Routine Cardiovascular Exam Present: RRR A/P Progress Note ([facility]) (1) Chest pain Status: Acute Current Visit: Yes (2) Coronary artery disease Status: Acute Assessment and plan: No evidence of cardiac issues with normal troponins, unremarkable eKG and echo showing normal LVEF without significant valve abnormalities. Symptoms likely due to Crohn's. Will discharge home on increase norvasc 5 mg BID and Coreg 25 mg BID. Follow up with Dr. Zhou in 2 wks. Current Visit: Yes
--- NOTE | 2017-10-21 16:31 | HMH.DCSUM ---
General - General Admission date: 10/14/17 Discharge date: 10/16/17 HPI HPI: This 47-year-old white female with a long-standing history of coronary artery disease. She is a regular patient of Dr. Ender Zhou's and sees him on a regular basis. She presented with chest pain which she described as a hot knife stabbing pressure in the chest. She first presented to the [place] emergency room but came to [place] after the ER physician in [place] would not contact Dr. Zhou according to her statement. She states that she had multiple cardiac catheterizations with a total of 13 stents placed. Her first catheterization was in 2008 ; her last catheterization was 2017. She stated that she had 3 myocardial infarctions. She also noted a significant family history of cardiac disease. A cousin at age 47 and her father and sister have coronary artery disease. The patient's cardiac medications included Plavix, aspirin, Ranexa, Coreg and Norvasc. She also reported taking Synthroid for hypothyroidism.. Objective Vital signs: Temp Pulse Resp BP Pulse Ox 97.9 F 61 18 136/73 98 10/16/17 08:00 10/16/17 08:00 10/16/17 08:00 10/16/17 08:00 10/16/17 08:50 Narrative: Exam Vital signs and Labs for Last 24 Hours: Temp Pulse Resp BP Pulse Ox 98.1 F 66 13 144/104 98 10/14/17 16:46 10/14/17 17:05 10/14/17 17:05 10/14/17 17:05 10/14/17 17:54 BMP 10/14/17 17:40 Sodium 140 Potassium 3.5 Chloride 103 Carbon Dioxide 29 BUN 12 Creatinine 0.90 Glucose 90 no acute distress Comments: But says she is having severe chest pain - *Routine HEENT Exam Eye: Present: PERRL ENT: Present: mucous membranes moist - *Routine Neck Exam Absent: carotid bruit, thyromegaly - Routine Chest/Breast/Axilla Exam Breast: Absent: tenderness - *Routine Respiratory Exam Present: CTA bilaterally. Absent: rales, respiratory distress, wheezes - *Routine Cardiovascular Exam Present: RRR Comments: No ectopics - *Routine Abdominal Exam Present: soft. Absent: tenderness - *Routine Extremities Exam Absent: edema - *Routine Skin Exam Present: intact - *Routine Neurological Exam Present: alert, oriented X3, moving all extremities. Absent: altered mental status - Routine Psychiatric Exam Present: normal affect H&P: Result - Labs Labs: [facility] 10/14/17 17:40 Sodium 140 Potassium 3.5 Chloride 103 Carbon Dioxide 29 BUN 12 Creatinine 0.90 Glucose 90 Negative troponin Hospital Course Hospital Course: Per cardiology: With normal troponins and no acute EKG changes to suggest ACS, changes were made to medical therapy including increasing norvasc and adding IV PPI. Recent cardiac cath in [place] earlier this year was without significant CAD and repeat cardiac cath not indicated at this time. Due to recent of significant other, will obtain echo to evaluate for Takotsubo Cardiomyopathy. Patient does not take any medications on a regular basis for her Crohn's disease. Most of her symptoms possibly related to her Crohn's. Patient did improve with less chest discomfort. She was followed by cardiology who noted no evidence of cardiac issues with normal troponins, unremarkable EKG and echo showing normal LVEF without significant valve abnormalities. Symptoms were felt to be likely due to Crohn's. ON 10/16/17 She was much better and anxious to go home. She was discharge home on 10/16/17 on increased Norvasc 5 mg BID and Coreg 25 mg BID. Follow up was to be with Dr. Zhou in 2 wks. She was also to followup with her PCP and GI MD for Crohns. Meds Home Medications Medication Instructions Recorded Confirmed Type Amlodipine Besylate [Norvasc 2.5mg 2.5 mg PO DAILY 10/14/17 10/14/17 History tablet] Aspirin [Aspir 81] 162 mg PO DAILY 10/14/17 10/14/17 History Atorvastatin Calcium [Lipitor 40mg 40 mg
--- NOTE | 2017-10-21 16:38 | P.DS_ITS ---
General - General Admission date: 10/14/17 Discharge date: 10/16/17 HPI HPI: This 47-year-old white female with a long-standing history of coronary artery disease. She is a regular patient of Dr. Ender Zhou's and sees him on a regular basis. She presented with chest pain which she described as a hot knife stabbing pressure in the chest. She first presented to the [place] emergency room but came to [place] after the ER physician in [place] would not contact Dr. Zhou according to her statement. She states that she had multiple cardiac catheterizations with a total of 13 stents placed. Her first catheterization was in 2008 ; her last catheterization was 2017. She stated that she had 3 myocardial infarctions. She also noted a significant family history of cardiac disease. A cousin at age 47 and her father and sister have coronary artery disease. The patient' s cardiac medications included Plavix, aspirin, Ranexa, Coreg and Norvasc. She also reported taking Synthroid for hypothyroidism.. Objective Vital signs: Temp Pulse Resp BP Pulse Ox 97.9 F 61 18 136/73 98 10/16/17 08:00 10/16/17 08:00 10/16/17 08:00 10/16/17 08:00 10/16/17 08:50 Narrative: Exam Vital signs and Labs for Last 24 Hours: Temp Pulse Resp BP Pulse Ox 98.1 F 66 13 144/104 98 10/14/17 16:46 10/14/17 17:05 10/14/17 17:05 10/14/17 17:05 10/14/17 17:54 BMP 10/14/17 17:40 Sodium 140 Potassium 3.5 Chloride 103 Carbon Dioxide 29 BUN 12 Creatinine 0.90 Glucose 90 no acute distress Comments: But says she is having severe chest pain - *Routine HEENT Exam Eye: Present: PERRL ENT: Present: mucous membranes moist - *Routine Neck Exam Absent: carotid bruit, thyromegaly - Routine Chest/Breast/Axilla Exam Breast: Absent: tenderness - *Routine Respiratory Exam Present: CTA bilaterally. Absent: rales, respiratory distress, wheezes - *Routine Cardiovascular Exam Present: RRR Comments: No ectopics - *Routine Abdominal Exam Present: soft. Absent: tenderness - *Routine Extremities Exam Absent: edema - *Routine Skin Exam Present: intact - *Routine Neurological Exam Present: alert, oriented X3, moving all extremities. Absent: altered mental status - Routine Psychiatric Exam Present: normal affect H&P: Result - Labs Labs: [facility] 10/14/17 17:40 Sodium 140 Potassium 3.5 Chloride 103 Carbon Dioxide 29 BUN 12 Creatinine 0.90 Glucose 90 Negative troponin Hospital Course Hospital Course: Per cardiology: With normal troponins and no acute EKG changes to suggest ACS, changes were made to medical therapy including increasing norvasc and adding IV PPI. Recent cardiac cath in [place] earlier this year was without significant CAD and repeat cardiac cath not indicated at this time. Due to recent of significant other, will obtain echo to evaluate for Takotsubo Cardiomyopathy. Patient does not take any medications on a regular basis for her Crohn's disease. Most of her symptoms possibly related to her Crohn's. Patient did improve with less chest discomfort. She was followed by card
== END 2017-10-16 12:33 ==
LOC: ER 14:12 → 2ND 16:02 → ICU 17:06
PROVIDERS: Physician Assistant; Admitting Provider Family Medicine; Emergency Provider Family Medicine; Visit Provider Family Medicine
DX: I25.10 Atherosclerotic heart disease of native coronary artery without angina pectoris (principal); Z95.5 Presence of coronary angioplasty implant and graft; E03.9 Hypothyroidism, unspecified; I10 Essential (primary) hypertension; K50.90 Crohn's disease, unspecified, without complications; E78.5 Hyperlipidemia, unspecified; I25.2 Old myocardial infarction; Z82.49 Family history of ischemic heart disease and other diseases of the circulatory system; E11.9 Type 2 diabetes mellitus without complications; Z79.899 Other long term (current) drug therapy
CPT/HCPCS: 36415; 71046; 80048; 80053; 82550; 82553; 84484; 85025; 86677; 93005; 93041; 93306; 96374; 96375; 96376; 99284; G0378; J2405